=== PATIENT | female | born 1975 | race Two or more races ===

== ENCOUNTER 2018-06-30 23:06 | Emergency (ER) | payer OTHER ==
[~2018-06-30] VITALS: Ht 157.5 cm; Wt 81.2 kg
[2018-06-30] MEDS ORDERED: NITROGLYCERIN OINT 1 GM PACKET TP ONE (23:30)
[2018-06-30] MEDS ORDERED: NITROGLYCERIN 0.4 MG/TAB BOTTLE SL ONE (23:30)
[2018-06-30 23:38] LABS: BASOPHILS # (AUTO) 0.1 K/uL (0.0-8.0); BASOPHILS % (AUTO) 0.6 % (0.0-2.0); EOSINOPHILS # (AUTO) 0.4 K/uL (0.0-0.7); EOSINOPHILS % (AUTO) 3.3 % (0.0-7.0); HEMATOCRIT 39.3 % (31.2-41.9); HEMOGLOBIN 13.8 g/dL (10.9-14.3); LYMPHOCYTES # (AUTO) 3.1 K/uL (20.0-40.0); LYMPHOCYTES % (AUTO) 25.9 % (20.5-51.5); MEAN CORPUSCULAR HEMOGLOBIN 28.1 uug (24.7-32.8); MEAN CORPUSCULAR HGB CONC 35 g/dL (32.3-35.6); MONOCYTES # (AUTO) 0.9 K/uL (2.0-10.0); MONOCYTES % (AUTO) 7.1 % (0.0-11.0); NEUTROPHILS # (AUTO) 7.7 K/uL (1.8-8.9); NEUTROPHILS % (AUTO) 63.1 % (38.5-71.5); PLATELET COUNT (AUTO) 341 K/uL (179-408); RED BLOOD CELL COUNT(AUTO) 4.92 MIL/uL (3.63-4.92); WHITE BLOOD COUNT (AUTO) 12.2 K/uL (3.8-11.8)
[2018-06-30 23:48] LABS: CREATININE 0.7 mg/dL (0.6-1.3); POTASSIUM 3.7 mmol/L (3.5-5.1)
[2018-07-01] LABS: BILIRUBIN,DIRECT 0.1 mg/dL (0.0-0.2); BILIRUBIN,TOTAL 0.3 mg/dL (0.2-1.0)
[2018-07-01] MEDS ORDERED: NITROGLYCERIN 0.4 MG/TAB BOTTLE SL ONE (00:15)
[2018-07-01] MEDS ORDERED: NITROGLYCERIN OINT 1 GM PACKET TP ONE (00:15)
[2018-07-01 00:17] VITALS: BP 161/93
--- NOTE | 2018-07-01 00:24 | NUR ---
2nd dose nitro given @ 0022 BP 153/65
--- NOTE | 2018-07-01 00:27 | NUR ---
3rd dose nitro given @ 0027 BP 160/75
[2018-07-01] MEDS ORDERED: HYDROCODONE/APAP 10-325 MG TABLET ONE (00:43)
[2018-07-01] MEDS ORDERED: LORAZEPAM 2 MG/1 ML VIAL ONE (00:44)
[2018-07-01] MEDS ORDERED: ONDANSETRON 4 MG/2 ML VIAL ONE (00:44)
[2018-07-01] MEDS ORDERED: ONDANSETRON IV *ER 4 MG/2 ML VIAL IV ONE (00:45)
[2018-07-01] MEDS ORDERED: HYDROCODONE/APAP 10-325 MG TABLET PO ONE (00:45)
[2018-07-01] MEDS ORDERED: LORAZEPAM 2 MG/1 ML VIAL IV ONE (00:45)
--- NOTE | 2018-07-01 00:48 | NUR ---
Pt. resting in bed w/ eyes open, IV patent,
--- NOTE | 2018-07-01 01:14 | NUR ---
Pt. resting in bed, IV patent - no s/s infiltration/phlebitis, NAD,
--- NOTE | 2018-07-01 01:37 | NUR ---
MD at bedside for update, pt. resting in bed w/ eyes closed, awaiting 2nd trop. draw, IV flushes w/o difficulty - no s/s infiltration/phlebitis, NAD
[2018-07-01] MEDS ORDERED: OXYCODONE/APAP 5-325 MG TABLET PO ONE (01:45)
[2018-07-01] MEDS ORDERED: OXYCODONE/APAP 5-325 MG TABLET ONE (01:54)
--- NOTE | 2018-07-01 01:55 | NUR ---
Pt. taken off unit via wheelchair for CT head by [employer] tech.
--- NOTE | 2018-07-01 03:26 | NUR ---
Patient discharged to home in stable conditon. Written and verbal after care instructions given. Patient verbalizes understanding of instructions. Pt. d/c w/ prescription per MD order, d/c paper signed, all belongings w/ pt., ID band/IV removed, instructed not to drive, ambulated off unit w/ steady gait, awaiting ride from mother in waiting room to leave in private vehicle, NAD
== END 2018-07-01 03:28 | disposition home or self-care (01) ==
LOC: ER 23:07
DX: R07.2 Precordial pain (principal); R51 Headache; I10 Essential (primary) hypertension; E11.9 Type 2 diabetes mellitus without complications
CPT/HCPCS: 36415 ×2; 70450; 71045; 80048; 80076; 83880; 84484 ×2; 85025; 85730; 93005; 96374; 96375; 99284; J2060; J2405; 70030-TC; A4663